=== PATIENT | female | born 1965 | race Caucasian/White ===

== ENCOUNTER → 2021-07-04 19:42 | Outpatient (ROUT) | payer MEDICARE, OTHER, SELFPAY ==
[2021-07-04 19:57] LABS: Add Manual Diff / Slide Review NO; Basophils Absolute Auto 0 /uL (0-100); Basophils Percent Auto 0.4 % (0-2); Eosinophils Absolute Auto 100 /uL (0-450); Eosinophils Percent Auto 0.8 % (2-4); Hematocrit 40.2 % (36-46); Lymphocytes Absolute Auto 2300 /uL (1100-4500); Lymphocytes Percent Auto 30.6 % (25-40); Mean Corpuscular HGB Conc 32.3 % (30-36); Mean Corpuscular Hemoglobin 29.9 PG (26-34); Mean Corpuscular Volume 92.6 fL (80-100); Monocytes Absolute Auto 600 /uL (0-900); Monocytes Percent Auto 7.9 % (3-14); Neutrophils Absolute Auto 4500 /uL (1500-7000); Neutrophils Percent Auto 60.3 % (50-75); Platelet Count 247 X10^3/uL (150-400); Red Blood Cell Count 4.35 X10^6/uL (4.0-5.2); Red Cell Distribution Width 14.6 % (11.6-14.8); White Blood Cell Count 7.4 X10^3/uL (4.5-11.0)
[2021-07-04 20:06] LABS: Alanine Aminotransferase 38 IU/L (<35); Albumin 4.6 g/dL (3.5-5.0); Albumin Globulin Ratio 1.3 (1.0-2.8); Alkaline Phosphatase 62 U/L (38-126); Aspartate Aminotransferase 49 IU/L (14-36); BUN Creatinine Ratio 16.7 (6-22); Bilirubin Total 0.6 mg/dL (0.2-1.3); Blood Urea Nitrogen 13 mg/dL (7-17); C-Reactive Protein Quant 1.1 mg/dL (<1.0); Calcium 9.9 mg/dL (8.4-10.2); Carbon Dioxide 27 mmol/L (22-32); Chloride 104 mmol/L (98-107); Estimated Glomerular Filt Rate > 60.0 mL/min (>60); Globulin 3.5 g/dL (1.7-4.1); Glucose 78 mg/dL (70-100); Potassium 4.7 mmol/L (3.4-5.1); Sodium 139 mmol/L (137-145); Total Protein 8.1 g/dL (6.3-8.2)
[2021-07-04 20:13] LABS: HEMOLYSIS 93 (0-50)
== END ==
PROVIDERS: Visit Provider Internal Medicine Gastroenterology
DX: K50.80 Crohn's disease of both small and large intestine without complications (principal); K63.2 Fistula of intestine; E66.01 Morbid (severe) obesity due to excess calories
CPT/HCPCS: 80053; 85025; 86140

== ENCOUNTER 2024-08-09 09:11 | Day surgery (SDC) | payer MEDICARE, OTHER, SELFPAY ==
--- NOTE | 2024-08-09 | PATH_ITS ---
[facility] Accession Number: [id number] No. of containers.. Tissue . 01 Material submitted: . PART A: colon - TRANSVERSE POLYP PART B: colon - ASCENDING PART C: colon - TRANSVERSE PART D: colon - DESCENDING PART E: sigmoid colon - SIGMOID PART F: colon - RECTUM . 01 Diagnosis: Part A: TRANSVERSE POLYP: Tubular adenoma. . Part B: ASCENDING: Colonic mucosa with mild crypt architectural distortion, compatible with quiescent colitis. No active inflammation, granulomas, dysplasia, or malignancy identified. . Part C: TRANSVERSE: Colonic mucosa with no diagnostic alterations. No active inflammation, granulomas, dysplasia, or malignancy identified. . Part D: DESCENDING: Colonic mucosa with no diagnostic alterations. No active inflammation, granulomas, dysplasia, or malignancy identified. . Part E: SIGMOID: Colonic mucosa with no diagnostic alterations. No active inflammation, granulomas, dysplasia, or malignancy identified. . Part F: RECTUM: Colonic mucosa with no diagnostic alterations. No active inflammation, granulomas, dysplasia, or malignancy identified. [facility] 08/11/2024 1600 Local . 01 Electronically signed: . Nakul Yanez MD, Pathologist NPI- [id number] . 01 Gross description: . Part A: TRANSVERSE POLYP: Received in formalin are 2 fragment(s) of amin, soft tissue measuring 0.2 x 0.2 x 0.2 cm to 0.3 x 0.2 x 0.2 cm submitted entirely in 1 cassette(s) . Part B: ASCENDING: Received in formalin are 3 fragment(s) of amin, soft tissue measuring 0.1 x 0.1 x 0.1 cm to 0.3 x 0.2 x 0.2 cm submitted entirely in 1 cassette(s) . Part C: TRANSVERSE: Received in formalin are 4 fragment(s) of amin, soft tissue measuring 0.1 x 0.1 x 0.1 cm to 0.3 x 0.3 x 0.2 cm submitted entirely in 1 cassette(s) . Part D: DESCENDING: Received in formalin are 4 fragment(s) of amin, soft tissue measuring 0.1 x 0.1 x 0.1 cm to 0.3 x 0.2 x 0.2 cm submitted entirely in 1 cassette(s) . Part E: SIGMOID: Received in formalin are 4 fragment(s) of amin, soft tissue measuring 0.1 x 0.1 x 0.1 cm to 0.3 x 0.2 x 0.2 cm submitted entirely in 1 cassette(s) . Part F: RECTUM: Received in formalin are 4 fragment(s) of amin, soft tissue measuring 0.1 x 0.1 x 0.1 cm to 0.3 x 0.2 x 0.2 cm submitted entirely in 1 cassette(s) /[facility] 08/11/2024 1600 Local . 01 Pathologist provided ICD-10: D12.3, K50.813 . 01 CPT . 279694, 529099, 527466, 583608, 368296, [id number] Specimen Comment: A courtesy copy of this report has been sent to [phone] Performed at: [address] [id number] MD Nakul Yanez MD Phone: [phone]
[2024-08-09 09:34] VITALS: BP 143/93; PULSE 66; RESP 16; TEMP 36.8; O2SAT 99
--- NOTE | 2024-08-09 10:04 | SUR.PREOP ---
See new order from Martha JOAQUIN. Informed of emesis with migraine prior to admit and that pt vomitted up Sumatriptan at home.
--- NOTE | 2024-08-09 10:06 | P.HP_ITS ---
History of Present Illness History of Present Illness Date Patient Seen: 08/09/24 Time Patient Seen: 10:06 Chief complaint: Dx Colonoscopcy w/poss bx Narrative: 59-year-old female with Crohn's ileocolitis due for surveillance colonoscopy. She is on Remicade only at this point in elected to stop her azathioprine. She has not noticed any change in the control of her symptoms. She denies any obstructive symptoms. Her only complaint is having a headache this morning. I reviewed the recent office note by Dr. Hardwick. No additional changes. [facility] Social History Smoking Status: Former smoker alcohol intake: current Meds Home Medications and Allergies Home Medications Medication Instructions Recorded Confirmed Type ciprofloxacin HCl 500 mg tablet 500 mg PO Q12H ##0 08/09/16 History (Cipro) diazepam 5 mg tablet (Valium) 5 mg PO SEE INSTRUCTIONS #30 tabs 08/09/16 Rx hydromorphone 2 mg tablet 2 mg PO Q2HP PRN #0 tabs 08/09/16 History (Dilaudid) mesalamine 400 mg capsule (with 400 mg PO #0 caps 08/09/16 History delayed release tablets inside) (Delzicol) metronidazole 500 mg tablet 500 mg PO Q8H ##0 08/09/16 History (Flagyl) oxycodone-acetaminophen 5 mg-325 1 tab PO Q4HP PRN ##0 08/09/16 History mg tablet (Percocet) prednisone 20 mg tablet 60 mg PO Q DAY ##0 08/09/16 History lisinopril 10 mg tablet 10 mg PO DAILY 08/09/24 08/09/24 History sumatriptan succinate 50 mg tablet 50 mg PO PRN PRN Migraine Headache 08/09/24 08/09/24 History Allergies Allergy/AdvReac Type Severity Reaction Status Date / Time No Known Drug Allergies Allergy Verified 08/09/24 09:51 Review of Systems Review of Systems ROS: Yes All systems reviewed with the patient and are negative except as otherwise documented Exam Vital Signs (past 8 hours): - 08/09/24 09:34 Temperature 98.2 F Pulse Rate 66 Respiratory Rate 16 Blood Pressure 143/93 H Pulse Oximetry 99 Oxygen Delivery Method Room Air Oxygen Delivery Method Room Air Const General: cooperative HENMT Head: normal to inspection Eyes General: appearance normal, both eyes and all related structures Neck Neck: normal visual inspection Chest Chest: normal inspection of the chest Resp Effort & Inspection: normal respiratory effort Cardio Rate: regular rate GI Inspection: normal to inspection Skin General: no rashes or lesions noted Neuro General: patient alert and patient awake Extrem General: normal to inspection and no pedal edema Psych Appearance: grossly normal Assessment & Plan Assessment & Plan narrative: 59-year-old female with Crohn's ileocolitis. Surveillance colonoscopy is pursued today. Time-Based Coding :: [TOTAL MINUTES] spent with patient and on the chart (including review of chart, obtaining history, exam, reviewing outside data, placing orders, documenting exam and treatment plan, and counseling patient) on [DATE].
--- NOTE | 2024-08-09 10:08 | PM.PREOP ---
Pre-operative Note Interval Note History & Physical reviewed/Exam performed by Physician: Yes Changes to H&P: Yes ASA Class (for procedural sedation): III
[2024-08-09] MEDS: LACTATED RINGERS 1,000 ML 42 ML IV ×2 (10:11→11:44)
[2024-08-09] MEDS: ONDANSETRON 4 MG/2 ML INJ IV (10:12)
[2024-08-09] MEDS: ACETAMINOPHEN IV 1,000 MG/100 ML VIAL 400 MG IV (10:12)
[2024-08-09] MEDS: FAMOTIDINE 20 MG/2 ML VIAL IV (10:13)
--- NOTE | 2024-08-09 11:35 | P.OP.COLON_ITS ---
Operative Date/Time/Diagnoses Date of procedure: 08/09/24 Time of procedure: 11:36 Pre-op diagnosis: 59-year-old female with longstanding ileal colitis related Crohn's here for surveillance colonoscopy. Post-op diagnosis: same Procedure & Clinicians Study performed: Colonoscopy with cold snare polypectomy and random biopsies Same procedure as scheduled: Yes Indications: 59-year-old female with longstanding ileal colitis related Crohn's here for surveillance colonoscopy. Surgeon: Marcio Hwang Procedure Notes SCOAP/Timeout: Done Procedure in detail: After the risks and benefits were explained, written and verbal informed consent was obtained. The patient was brought into the procedure room and placed into the left lateral decubitus position. Please see anesthesia note for sedation details. Digital rectal examination was accomplished. The scope was introduced into the patient and advanced under direct visualization to the cecum as identified by the appendiceal orifice and ileocecal valve. The scope was slowly withdrawn to carefully examine the mucosa for any defects or lesions. Comprehensive imaging was accomplished throughout the rectum including the dentate line. The colon was decompressed, the scope was then removed from the patient who tolerated the procedure. Pediatric colonoscope Bowel prep adequate Scope withdrawal time: 22 minutes Sedation minutes: 34 Complications: none Impression: The patient had a fairly redundant colon. Sigmoid colon was quite tortuous. T here was some diverticulosis noted in this region as well. In the transverse colon there was a 5 mm sessile polyp removed with cold snare. I did not see any sign of macroscopic colitis throughout. No evidence of proctitis. Segmental biopsies were taken from the ascending, transverse, descending, sigmoid, and finally rectum. The terminal ileum could not be accessed. The ileocecal valve opening appeared to be quite stenotic but there was no evidence of any obvious inflammatory process. Endoscopic diagnosis 1. Stenotic ileocecal valve 2. Colon polyp 3. Redundant and tortuous colon 4. Diverticulosis Post-procedure Plan for aftercare: 1. Await histology 2. Continue to follow up in GI clinic 3. Continue current IBD therapy. 4. Consider updated small-bowel imaging with CT enterography in light of the findings at the ileocecal valve. 5. Any food that requires mastication should be extensively chewed. I would recommend a soft diet for the most part to avoid any potential for small bowel obstruction. Disposition: PACU
[2024-08-09 11:37] VITALS: BP 136/66; PULSE 68; RESP 18; TEMP 36.4; O2SAT 95
[2024-08-09 11:42] VITALS: BP 121/76; PULSE 72; RESP 16; O2SAT 97
[2024-08-09 11:49] VITALS: BP 133/75; PULSE 68; RESP 14; O2SAT 98
[2024-08-09 11:55] VITALS: BP 120/76; PULSE 68; RESP 14; O2SAT 97
== END 2024-08-09 12:06 | disposition home or self-care (01) ==
PROVIDERS: Referring Provider Internal Medicine Gastroenterology; Visit Provider Internal Medicine Gastroenterology
PROC: 0DJD8ZZ Inspection of Lower Intestinal Tract, Via Natural or Artificial Opening Endoscopic (ICD-10-PCS; CPT 45378; principal; 2024-08-09 10:30)
DX: K50.80 Crohn's disease of both small and large intestine without complications (principal); Z09 Encounter for follow-up examination after completed treatment for conditions other than malignant neoplasm; K57.30 Diverticulosis of large intestine without perforation or abscess without bleeding; D12.3 Benign neoplasm of transverse colon
CPT/HCPCS: 45385; 45380; J0136; J2405; J2704